=== PATIENT | male | born 1995 | race Caucasian/White ===

== ENCOUNTER → 2021-07-15 11:14 | Outpatient (BNVA) | payer OTHER, SELFPAY | PROVIDERS: Visit Provider Physician Assistant Medical | DX: S56.811A Strain of other muscles, fascia and tendons at forearm level, right arm, initial encounter (principal); X58.XXXA Exposure to other specified factors, initial encounter | CPT/HCPCS: 73110; 73130; 99203 ==

== ENCOUNTER → 2021-07-22 14:56 | Outpatient (BNVA) | payer OTHER, SELFPAY | PROVIDERS: Visit Provider Physician Assistant | DX: S66.911A Strain of unspecified muscle, fascia and tendon at wrist and hand level, right hand, initial encounter (principal); X58.XXXA Exposure to other specified factors, initial encounter | CPT/HCPCS: 99213 ==

== ENCOUNTER → 2023-11-25 12:29 | Outpatient (BNVA) | payer OTHER, SELFPAY | PROVIDERS: Visit Provider Physician Assistant | DX: S93.601A Unspecified sprain of right foot, initial encounter (principal); S93.401A Sprain of unspecified ligament of right ankle, initial encounter; W17.89XA Other fall from one level to another, initial encounter | CPT/HCPCS: 73610; 73630; 99204 ==

== ENCOUNTER → 2023-11-28 08:59 | Outpatient (BNVA) | payer OTHER, SELFPAY | PROVIDERS: Visit Provider Internal Medicine | DX: S93.401A Sprain of unspecified ligament of right ankle, initial encounter (principal); S93.601A Unspecified sprain of right foot, initial encounter; W17.89XA Other fall from one level to another, initial encounter | CPT/HCPCS: 99213 ==

== ENCOUNTER 2024-04-03 08:29 | Emergency (ER) | payer OTHER, SELFPAY ==
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
[2024-04-03 08:39] VITALS: BP 132/78; PULSE 78; O2SAT 98
[2024-04-03 09:20] VITALS: BP 126/79; PULSE 56; RESP 16; TEMP 36.6; O2SAT 98; BMI 24.6
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
[2024-04-03] MEDS: Acetaminophen 325 MG TABLET 975 MG PO (10:17)
[2024-04-03] MEDS: Ibuprofen 600 MG TABLET PO (10:18)
[2024-04-03 11:55] VITALS: BP 120/74; PULSE 68; RESP 18; TEMP 36.8; O2SAT 96
[2024-04-03 12:05] VITALS: BP 120/74; PULSE 68; RESP 18; TEMP 36.8; O2SAT 96
== END 2024-04-03 12:06 | disposition home or self-care (01) ==
PROVIDERS: Emergency Provider Emergency Medicine
DX: S46.911A Strain of unspecified muscle, fascia and tendon at shoulder and upper arm level, right arm, initial encounter (principal); T14.8XXA Other injury of unspecified body region, initial encounter; V43.52XA Car driver injured in collision with other type car in traffic accident, initial encounter; Y93.9 Activity, unspecified; Y92.410 Unspecified street and highway as the place of occurrence of the external cause; Y99.9 Unspecified external cause status; M25.511 Pain in right shoulder; R07.81 Pleurodynia
CPT/HCPCS: 71101; 73030; 73060; 99283; 99284